=== PATIENT | male | born 1975 | race Caucasian/White ===

== ENCOUNTER 2017-10-19 08:54 | Emergency (ER) | payer OTHER ==
[~2017-10-19] VITALS: Ht 182.9 cm; Wt 127.0 kg
[~2017-10-19 08:54] MED LIST: FLEXERIL PO; HYDROCODONE-APA1 TA1 PO; MOBIC7.5 MG PO
[2017-10-19 09:00] VITALS: BP 151/87
[2017-10-19] MEDS ORDERED: PREDNISONE 20 M20 M1 PO (09:10)
[2017-10-19] MEDS ORDERED: FLEXERIL PO (09:10)
== END 2017-10-19 09:33 | disposition home or self-care (01) ==
LOC: M.ERS 08:54
DX: M54.5 Low back pain (principal); Z88.6 Allergy status to analgesic agent